=== PATIENT | female | born 1945 | race Caucasian/White ===

== ENCOUNTER 2024-11-09 10:24 | Emergency (ER) | payer SELFPAY ==
[~2024-11-09] VITALS: Ht 162.6 cm; Wt 68.0 kg
[2024-11-09 10:49] VITALS: O2SAT 98
[2024-11-09] MEDS: ACETAMINOPHEN 500MG TABLET PO ONE (11:27)
[2024-11-09] MEDS ORDERED: ACET-2708 MT (11:51)
[2024-11-09 11:59] VITALS: BP 140/68; PULSE 60; RESP 16; TEMP 36.9; O2SAT 98
== END 2024-11-09 12:11 | disposition home or self-care (01) ==
LOC: ER 10:24
DX: M19.031 Primary osteoarthritis, right wrist (principal); E03.9 Hypothyroidism, unspecified
CPT/HCPCS: 73110; 99283

== ENCOUNTER 2024-12-04 12:05 | Emergency (ER) | payer SELFPAY ==
[~2024-12-04] VITALS: Ht 160 cm; Wt 72.0 kg
[~2024-12-04 12:05] MED LIST: ACET-2708 MT
[2024-12-04 12:15] VITALS: O2SAT 99
[2024-12-04 12:56] LABS: BASOPHILS % 0.3 % (0.0-2.0); EOSINOPHILS % 0.6 % (0.0-5.0); HEMATOCRIT. 34.2 % (36.0-48.0); HEMOGLOBIN. 11.2 g/dL (12.0-16.0); LYMPHOCYTES % 45.9 % (20.0-50.0); MEAN PLATELET VOLUME 7.5 fl (7.4-10.4); MONOCYTES % 6.8 % (2.0-8.0); NEUTROPHILS % 46.4 % (40.0-76.0); PLATELET 234 x1000/uL (130-400); RED BLOOD CELL COUNT 3.81 mill/uL (4.2-5.4); RED CELL DISTRIBUTION WIDTH 14.3 % (11.6-14.6)
[2024-12-04 13:18] LABS: CREATININE 0.7 mg/dL (0.6-1.0)
[2024-12-04 13:19] LABS: UREA NITROGEN BLOOD 14 mg/dL (9-23)
[2024-12-04 13:20] LABS: ASPARTATE AMINOTRANSFERASE 27 IU/L (<34)
[2024-12-04 13:21] LABS: BILIRUBIN DIRECT 0.1 mg/dL (<=3.0); BILIRUBIN TOTAL 0.5 mg/dL (0.1-1.0); PROTEIN TOTAL 6.9 g/dL (6.0-8.3)
[2024-12-04 13:25] LABS: CLARITY URINE CLEAR (CLEAR); COLOR URINE YELLOW (YELLOW); GLUCOSE URINE NEGATIVE (NEGATIVE); KETONES URINE NEGATIVE (NEGATIVE); LEUKOCYTE ESTERASE URINE TRACE (NEGATIVE); NITRITE URINE NEGATIVE (NEGATIVE); OCCULT BLOOD URINE TRACE (NEGATIVE); PH URINE 5.5 (4.5-8.0); PROTEIN URINE NEGATIVE (NEGATIVE); SPECIFIC GRAVITY URINE 1.006 (1.005-1.030); UROBILINOGEN URINE 0.2 E.U./dL (0.2-1.0)
[2024-12-04] MEDS: KETOROLAC 30MG/ML VIAL IM ONE (13:26)
[2024-12-04 13:48] LABS: RBC URINE 0-2 /hpf (0-2); SQUAMOUS EPITHELIAL CELL URINE 1+ /lpf (RARE/1+)
[2024-12-04 13:49] LABS: BACTERIA URINE 1+; YEAST URINE NONE SEEN
[2024-12-04] MEDS ORDERED: CEPH500C2 MT (14:39)
[2024-12-04 15:22] VITALS: BP 169/57; PULSE 79; RESP 16; TEMP 36.9; O2SAT 99
== END 2024-12-04 15:26 | disposition home or self-care (01) ==
LOC: ER 12:24
DX: N39.0 Urinary tract infection, site not specified (principal); E03.8 Other specified hypothyroidism; Z79.899 Other long term (current) drug therapy
CPT/HCPCS: 99285; 74176; 80076; 80048; 81003; 83690; 85025; 36415; 96372; J1885